=== PATIENT | male | born 1955 | race Caucasian/White ===

== ENCOUNTER → 2016-08-07 | Outpatient (CLI) | payer OTHER | END | disposition home or self-care (01) | LOC: CPPFTMAIN 11:36 | PROVIDERS: ATTEND Family Medicine | DX: J98.8 Other specified respiratory disorders (principal) | CPT/HCPCS: 94060; 94726; 94729 ==

== ENCOUNTER 2016-10-09 15:07 | Emergency (ER) | payer OTHER ==
[2016-10-09 15:23] VITALS: TEMP 97.5
--- NOTE | 2016-10-09 15:43 | ED ---
General Adult HPI - General Chief complaint: Chest Pain Stated complaint: chest pain Time Seen by Provider: 10/09/16 15:20 Source: patient, RN notes reviewed Mode of arrival: wheelchair - History of Present Illness Initial comments: This is a 61-year-old male who has a past medical history significant for smoking. Patient comes into the hospital today because his right-sided chest pain. Patient went to see his primary medical care doctor and he sent him to the hospital. Patient states he was out and about today when he turned and felt a sharp pain in the right chest which now hurts anytime he takes a deep breaths or cough. Patient also states she does feel short of breath. Patient denies any radiation of this pain patient denies any diaphoresis patient denies any nausea. Patient denies abdominal pain patient denies vomiting or diarrhea recently. Patient denies headache patient denies lightheadedness patient denies numbness weakness. Patient denies any dizziness or near syncopal episode. Patient states he has not experienced this before. Patient denies any heart problems. - Related Data Home Medications Medication Instructions Recorded Confirmed Advair Inhaler (Unknown Dose) 1 puff PO DAILY PRN 10/09/16 10/09/16 Buprenorphine HCl/Naloxone HCl 1 film SL DIRECTED 10/09/16 10/09/16 [Suboxone 2 mg-0.5 mg Sl Film] Ergocalciferol (Vitamin D2) 50,000 unit PO DAILY 10/09/16 10/09/16 [Vitamin D2] Fluticasone Nasal [place] [Flonase 1 spray EA NOSTRIL DAILY 10/09/16 10/09/16 Nasal [place]] Lisinopril-Hctz 20-25 mg 1 tab PO DAILY 10/09/16 10/09/16 [Zestoretic 20-25] Loratadine [Claritin] 10 mg PO DAILY 10/09/16 10/09/16 Vilazodone Hydrochloride [Viibryd] 40 mg PO DAILY 10/09/16 10/09/16 amLODIPine [Norvasc] 5 mg PO DAILY 10/09/16 10/09/16 predniSONE See Taper PO DAILY 10/09/16 10/09/16 Previous Rx's Medication Instructions Recorded Albuterol Inhaler [Ventolin Hfa 1 - 2 puff INHALATION Q6HR PRN #2 10/09/16 Inhaler] puff predniSONE 40 mg PO DAILY #8 tab 10/09/16 Allergies Allergy/AdvReac Type Severity Reaction Status Date / Time No Known Allergies Allergy Verified 12/02/13 19:56 Review of Systems ROS Statement: Those systems with pertinent positive or pertinent negative responses have been documented in the HPI. ROS Other: All systems not noted in ROS Statement are negative. Past Medical History Past Medical History: Hypertension Additional Past Medical History / Comment(s): uti kidney stones, History of Any Multi-Drug Resistant Organisms: None Reported Past Surgical History: Appendectomy, Hernia Repair Additional Past Surgical History / Comment(s): kidney stone surgery Past Anesthesia/Blood Transfusion Reactions: No Reported Reaction Past Psychological History: No Psychological Hx Reported Smoking Status: Current every day smoker Past Alcohol Use History: None Reported Past Drug Use History: Prescription Drug Abuse General Exam - General Exam Comments Initial Comments: GENERAL: Patient is well-developed and well-nourished. Patient is nontoxic and well- hydrated and is in mild distress. ENT: Neck is soft and supple. No significant lymphadenopathy is noted. Oropharynx is clear. Moist mucous membranes. Neck has full range of motion without eliciting any pain. EYES: The sclera were anicteric and conjunctiva were pink and moist. Extraocular movements were intact and pupils were equal round and reactive to light. Eyelids were unremarkable. PULMONARY: Unlabored respirations. Good breath sounds bilaterally. No audible rales rhonchi or wheezing was noted. CARDIOVASCULAR: There is a regular rate and rhythm without any murmurs gallops or rubs. ABDOMEN: Soft and nontender with normal bowel sounds. No palpable organomegaly was noted. There is no palpable pulsatile mass. SKIN: Skin is clear with no lesions or rashes and otherwise unremarkable. NEUROLOGIC: Patient is alert and oriented x3. Cranial nerves II through XII are grossly intact. Motor and sensory are also intact. Normal speech, volume and content. Symmetrical smile. MUSCULOSKELETAL: Normal extremities with adequate strength and full range of motion. No lower extremity swelling or edema. No calf tenderness. LYMPHATICS: No significant lymphadenopathy is noted PSYCHIATRIC: Normal psychiatric evaluation. Normal interpersonal interactions appears functionally intact in deals appropriately with others. No signs of depression. No signs of anxiety. Course Vital Signs 10/09/16 10/09/16 10/09/16 15:18 16:33 16:34 Temperature 97.5 F L Pulse Rate 68 64 69 Respiratory 18 18 Rate Blood Pressure 162/106 182/109 O2 Sat by Pulse 97 98 Oximetry 10/09/16 16:41 Temperature Pulse Rate 68 Respiratory Rate Blood Pressure O2 Sat by Pulse Oximetry Medical Decision Making - Medical Decision Making EKG shows normal sinus rhythm at 73 bpm AL interval is 136 QRS is 88 QT interval 370 QTC is 407. Patient's EKG shows no ST segment elevation or depression or T-wave abnormality is noted. Patient's chest x-ray shows no acute abnormality I went back into the room to reevaluate the patient he was still wheezing diffusely but he refused to stay any longer states she would follow-up with Dr. Driver. I spoke with Dr. Driver he agreed that he would follow-up with the patient tomorrow. Patient's blood pressure was also elevated 180/104 and he stated he had not yet taken his blood pressure medicine and he will do so when he gets home. - Lab Data Result diagrams: 10/09/16 15:28 10/09/16 15:28 Lab Results 10/09/16 10/09/16 10/09/16 Range/Units 15:28 15:28 15:28 WBC 7.0 (3.8-10.6) k/uL RBC 4.82 (4.30-5.90) m/uL Hgb 14.1 (13.0-17.5) gm/dL Hct 43.2 (39.0-53.0) % MCV 89.5 (80.0-100.0) fL MCH 29.1 (25.0-35.0) pg MCHC 32.6 (31.0-37.0) g/dL RDW 12.6 (11.5-15.5) % Plt Count 210 (150-450) k/uL Neutrophils % 73 % Lymphocytes % 15 % Monocytes % 8 % Eosinophils % 1 % Basophils % 0 % Neutrophils # 5.1 (1.3-7.7) k/uL Lymphocytes # 1.1 (1.0-4.8) k/uL Monocytes # 0.5 (0-1.0) k/uL Eosinophils # 0.1 (0-0.7) k/uL Basophils # 0.0 (0-0.2) k/uL PT (9.0-12.0) sec INR (<1.1) APTT (22.0-30.0) sec D-Dimer (<0.60) mg/L FEU Sodium 140 (137-145) mmol/L Potassium 4.8 (3.5-5.1) mmol/L Chloride 103 (98-107) mmol/L Carbon Dioxide 27 (22-30) mmol/L Anion Gap 10 mmol/L BUN 16 (9-20) mg/dL Creatinine 1.07 (0.66-1.25) mg/dL Est GFR (MDRD) Af Amer >60 (>60 ml/min/1.73 sqM) Est GFR (MDRD) Non-Af >60 (>60 ml/min/1.73 sqM) Glucose 93 (74-99) mg/dL Calcium 9.3 (8.4-10.2) mg/dL Magnesium 1.8 (1.6-2.3) mg/dL Total Bilirubin 0.7 (0.2-1.3) mg/dL AST 28 (17-59) U/L ALT 32 (21-72) U/L Alkaline Phosphatase 53 (38-126) U/L Total Creatine Kinase 57 (55-170) U/L CK-MB (CK-2) 1.7 (0.0-2.4) ng/mL CK-MB (CK-2) Rel Index 3.0 Troponin I <0.012 (0.000-0.034) ng/mL NT-Pro-B Natriuret Pep pg/mL Total Protein 7.3 (6.3-8.2) g/dL Albumin 4.2 (3.5-5.0) g/dL 10/09/16 10/09/16 Range/Units 15:28 15:28 WBC (3.8-10.6) k/uL RBC (4.30-5.90) m/uL Hgb (13.0-17.5) gm/dL Hct (39.0-53.0) % MCV (80.0-100.0) fL MCH (25.0-35.0) pg MCHC (31.0-37.0) g/dL RDW (11.5-15.5) % Plt Count (150-450) k/uL Neutrophils % % Lymphocytes % % Monocytes % % Eosinophils % % Basophils % % Neutrophils # (1.3-7.7) k/uL Lymphocytes # (1.0-4.8) k/uL Monocytes # (0-1.0) k/uL Eosinophils # (0-0.7) k/uL Basophils # (0-0.2) k/uL PT 9.8 (9.0-12.0) sec INR 1.0 (<1.1) APTT 24.7 (22.0-30.0) sec D-Dimer 0.36 (<0.60) mg/L FEU Sodium (137-145) mmol/L Potassium (3.5-5.1) mmol/L Chloride (98-107) mmol/L Carbon Dioxide (22-30) mmol/L Anion Gap mmol/L BUN (9-20) mg/dL Creatinine (0.66-1.25) mg/dL Est GFR (MDRD) Af Amer (>60 ml/min/1.73 sqM) Est GFR (MDRD) Non-Af (>60 ml/min/1.73 sqM) Glucose (74-99) mg/dL Calcium (8.4-10.2) mg/dL Magnesium (1.6-2.3) mg/dL Total Bilirubin (0.2-1.3) mg/dL AST (17-59) U/L ALT (21-72) U/L Alkaline Phosphatase (38-126) U/L Total Creatine Kinase (55-170) U/L CK-MB (CK-2) (0.0-2.4) ng/mL CK-MB (CK-2) Rel Index Troponin I (0.000-0.034) ng/mL NT-Pro-B Natriuret Pep 267 pg/mL Total Protein (6.3-8.2) g/dL Albumin (3.5-5.0) g/dL Disposition Clinical Impression: COPD (chronic obstructive pulmonary disease) Disposition: HOME SELF-CARE Instructions: COPD (Chronic Obstructive Pulmonary Disease) (ED) Prescriptions: Albuterol Inhaler [Ventolin Hfa Inhaler] 1 - 2 puff INHALATION Q6HR PRN #2 puff PRN Reason: Difficulty breathing predniSONE 40 mg PO DAILY #8 tab Referrals: Isaiah Poole MD [Primary Care Provider] - 1-2 days Time of Disposition: 17:24
--- NOTE | 2016-10-09 15:52 | XR ---
EXAMINATION TYPE: XR chest 2V DATE OF EXAM: 10/09/2016 3:48 PM HISTORY: Chest Pain. REFERENCE: Previous study dated 12/03/2013. FINDINGS: Lung volumes are mildly prominent. There is a chronic right-sided pleural reaction. The liu gs are clear. Heart size is normal. IMPRESSION: NO ACUTE INTRATHORACIC ABNORMALITY.
[2016-10-09 15:58] LABS: Basophils % (A) 0 %; CH 29.6; CHCM 33.2; Eosinophils # (A) 0.1 k/uL (0-0.7); Eosinophils % (A) 1 %; HCT 43.2 % (39.0-53.0); HGB 14.1 gm/dL (13.0-17.5); Luc # (Auto) 0.22; Luc % (Auto) 3; Lymphocytes # (A) 1.1 k/uL (1.0-4.8); Lymphocytes % (A) 15 %; MCH 29.1 pg (25.0-35.0); MCHC 32.6 g/dL (31.0-37.0); MCV 89.5 fL (80.0-100.0); Mean Platelet Volume 7.1; Monocytes # (A) 0.5 k/uL (0-1.0); Monocytes % (A) 8 %; Neutrophils # (A) 5.1 k/uL (1.3-7.7); Neutrophils % (A) 73 %; RBC 4.82 m/uL (4.30-5.90); RDW 12.6 % (11.5-15.5)
[2016-10-09] MEDS ORDERED: IPRATROPIUM-ALBUTEROL 3 ML NEB INHALATION STA (16:07)
[2016-10-09] MEDS ORDERED: methylPREDNISolone SOD SUCCI 125 MG/2 ML VIAL IV STA (16:07)
[2016-10-09 16:08] LABS: ALT 32 U/L (21-72); AST 28 U/L (17-59); Alkaline Phosphatase 53 U/L (38-126); Anion Gap 10 mmol/L; Blood Urea Nitrogen 16 mg/dL (9-20); Calcium 9.3 mg/dL (8.4-10.2); Carbon Dioxide 27 mmol/L (22-30); Chloride 103 mmol/L (98-107); Glucose 93 mg/dL (74-99); Magnesium 1.8 mg/dL (1.6-2.3); Non-African American GFR(MDRD) >60 (>60 ml/min/1.73 sqM); Potassium 4.8 mmol/L (3.5-5.1); Sodium 140 mmol/L (137-145); Total Bilirubin 0.7 mg/dL (0.2-1.3); Total Protein 7.3 g/dL (6.3-8.2)
[2016-10-09 16:23] LABS: Partial Thromboplastin Time 24.7 sec (22.0-30.0); Prothrombin Time 9.8 sec (9.0-12.0)
[2016-10-09 16:29] LABS: Creatine Kinase 57 U/L (55-170)
[2016-10-09 16:42] LABS: Creatine Kinase MB 1.7 ng/mL (0.0-2.4); Troponin I <0.012 ng/mL (0.000-0.034)
[2016-10-09 17:45] VITALS: BP 182/106; PULSE 76; RESP 16
== END 2016-10-09 17:42 | disposition home or self-care (01) ==
LOC: EC 15:07
DX: J44.9 Chronic obstructive pulmonary disease, unspecified (principal); R07.9 Chest pain, unspecified; R06.02 Shortness of breath; I10 Essential (primary) hypertension; F17.200 Nicotine dependence, unspecified, uncomplicated; Z79.52 Long term (current) use of systemic steroids; Z79.899 Other long term (current) drug therapy; Z79.51 Long term (current) use of inhaled steroids
CPT/HCPCS: 99285; 96374; 36415; 94640; 93005; 85379; 83880; 80053; 82550; 82553; 83735; 84484; 85025; 85610; 85730; 71020; J2930

== ENCOUNTER → 2017-01-03 | Outpatient (CLI) | payer OTHER ==
--- NOTE | 2017-01-04 10:25 | ECHOF ---
Referral Reason:R06.2 Shortness of Breath MEASUREMENTS -------- HEIGHT: 170.2 cm WEIGHT: 74.8 kg BP: 129/84 RVIDd: 3.3 cm (< 3.3) IVSd: 1.3 cm (0.6 - 1.1) LVIDd: 4.2 cm (3.9 - 5.3) LVPWd: 1.2 cm (0.6 - 1.1) IVSs: 1.7 cm LVIDs: 2.7 cm LVPWs: 1.6 cm LA Diam: 3.4 cm (2.7 - 3.8) LAESV Index (A-L): 17.63 ml/m Ao Diam: 4.0 cm (2.0 - 3.7) AV Cusp: 2.5 cm (1.5 - 2.6) MV EXCURSION: 15.944 mm (> 18.000) MV EF SLOPE: 35 mm/s (70 - 150) EPSS: 0.1 cm MV E [place]: 0.78 m/s MV DecT: 251 ms MV A [place]: 0.88 m/s MV E/A Ratio: 0.88 AV maxP.37 mmHg AV meanP.02 mmHg RAP: 5.00 mmHg RVSP: 14.63 mmHg FINDINGS -------- Sinus rhythm. This was a technically adequate study. The left ventricular size is normal. There is mild concentric left ventricular hypertrophy. Overall left ventricular systolic function is normal with, an EF between 55 - 60 %. The right ventricle is mildly enlarged. The left atrial size is normal. The right atrium is normal in size. Aortic valve is trileaflet and is mildly thickened. Mild mitral annular calcification present. The tricuspid valve appears structurally normal. The pulmonic valve is normal. The aortic root is dilated measuring 4.0cm. The inferior vena cava is mildly dilated. The pericardium is normal. CONCLUSIONS -------- 1. Sinus rhythm. 2. Mild mitral annular calcification present. 3. The tricuspid valve appears structurally normal. 4. The pulmonic valve is normal. 5. The aortic root is dilated measuring 4.0cm. 6. The inferior vena cava is mildly dilated. 7. The pericardium is normal. 8. This was a technically adequate study. 9. The left ventricular size is normal. 10. There is mild concentric left ventricular hypertrophy. 11. Overall left ventricular systolic function is normal with, an EF between 55 - 60 %. 12. The right ventricle is mildly enlarged. 13. The left atrial size is normal. 14. The right atrium is normal in size. 15. Aortic valve is trileaflet and is mildly thickened. MECHANICAL EQUIPMENT TEST ENGINEER: Lana Donahue RDCS
== END | disposition home or self-care (01) ==
LOC: RADECHMAIN 14:39
PROVIDERS: ATTEND Family Medicine
DX: I05.8 Other rheumatic mitral valve diseases (principal); I77.819 Aortic ectasia, unspecified site; I35.8 Other nonrheumatic aortic valve disorders
CPT/HCPCS: 93306

== ENCOUNTER → 2017-03-05 | Outpatient (CLI) | payer OTHER | END | disposition home or self-care (01) | LOC: CPPFTMAIN 13:09 | PROVIDERS: ATTEND Family Medicine | DX: J44.9 Chronic obstructive pulmonary disease, unspecified (principal) | CPT/HCPCS: 94060; 94726; 94729 ==

== ENCOUNTER → 2017-04-18 | Outpatient (CLI) | payer OTHER ==
--- NOTE | 2017-04-18 14:37 | US ---
EXAMINATION TYPE: US venous doppler duplex LE DATE OF EXAM: 04/18/2017 12:48 PM COMPARISON: None History: 62-year-old male with leg pain and swelling bilaterally. LOWER EXTREMITY VENOUS INSUFFICIENCY SIDE PERFORMED: Bilateral FINDINGS: CHIEF WHARFINGER NOTES: Difficult exam due to edema 1) Color flow is present and patency is documented in the following vessels. No DVT or SVT is noted . EIV Common Femoral Vein Deep Femoral Vein Femoral Vein Popliteal Vein Proximal Calf Veins Greater Saph Vein Upper Small Saph Vein 2) There is venous reflux noted at the following venous levels: Right: GSV, Right proximal, mid, and distal femoral vein, Right proximal and mid popliteal vein, Righ t small saphenous vein, and right proximal calf veins. Left EIV, left Common Femoral Vein, left Deep Femoral Vein, left Femoral Vein, left Popliteal Vein, l eft Proximal Calf Veins, left Greater Saph Vein, and left Upper Small Saph Vein 3) Incompetent perforators: Not seen. IMPRESSION: 1. No evidence for DVT within the bilateral lower extremities imaged from the groin to the upper calv es. 2. Bilateral lower extremity venous reflux as outlined above.
--- NOTE | 2017-05-01 14:25 | P.ARTDOP ---
Arterial Doppler LOWER EXTREMITY ARTERIAL DOPPLER: DATE OF SERVICE: 04/18/2017 Reason for study: Bilateral leg pain. Doppler waveforms: Multiphasic bilaterally throughout. Pulse volume recording: Normal configuration. Pressure gradients: None. Ankle-brachial indices: Greater than 1 bilaterally. Toe pressures: [] on the right, [] on the left Impression: Normal study.
== END | disposition home or self-care (01) ==
LOC: RADUSWWP 11:54
PROVIDERS: ATTEND Family Medicine
DX: I87.2 Venous insufficiency (chronic) (peripheral) (principal)
CPT/HCPCS: 93923; 93970

== ENCOUNTER 2017-10-02 17:48 | Emergency (ER) | payer OTHER ==
[2017-10-02 17:57] VITALS: BP 146/63; PULSE 85; RESP 20; TEMP 97.7
--- NOTE | 2017-10-02 18:10 | ED ---
Fall HPI - General Chief Complaint: Fall Stated Complaint: Shoulder injury/knee pain Time Seen by Provider: 10/02/17 18:01 Source: patient, RN notes reviewed Mode of arrival: ambulatory - History of Present Illness Initial Comments: This is a 62-year-old male who presents to the emergency department with chief complaint of right shoulder injury. Patient states that prior to arrival he was at a friend's house with his dog on a leash. He states that his dog became spooked and ran out towards the road. He states that he did not want to let go of the leash because they were on a busy road. He ended up falling down and landing on his right side. Patient complains of right shoulder pain. He states he has limited range of motion of the shoulder. He immediately presented to the emergency department. Denies any other injuries or trauma. Denies fever, chills, chest pain, shortness of breath, abdominal pain, nausea or vomiting, constipation or diarrhea, dysuria or hematuria, numbness or tingling, headache or vision changes. - Related Data Home Medications Medication Instructions Recorded Confirmed Advair Inhaler (Unknown Dose) 1 puff PO DAILY PRN 10/09/16 10/09/16 Buprenorphine HCl/Naloxone HCl 1 film SL DIRECTED 10/09/16 10/09/16 [Suboxone 2 mg-0.5 mg Sl Film] Ergocalciferol (Vitamin D2) 50,000 unit PO DAILY 10/09/16 10/09/16 [Vitamin D2] Fluticasone Nasal [place] [Flonase 1 spray EA NOSTRIL DAILY 10/09/16 10/09/16 Nasal [place]] Lisinopril-Hctz 20-25 mg 1 tab PO DAILY 10/09/16 10/09/16 [Zestoretic 20-25] Loratadine [Claritin] 10 mg PO DAILY 10/09/16 10/09/16 Vilazodone HCl [Viibryd] 40 mg PO DAILY 10/09/16 10/09/16 amLODIPine [Norvasc] 5 mg PO DAILY 10/09/16 10/09/16 predniSONE See Taper PO DAILY 10/09/16 10/09/16 Previous Rx's Medication Instructions Recorded Albuterol Inhaler [Ventolin Hfa 1 - 2 puff INHALATION Q6HR PRN #2 10/09/16 Inhaler] puff predniSONE 40 mg PO DAILY #8 tab 10/09/16 Allergies Allergy/AdvReac Type Severity Reaction Status Date / Time No Known Allergies Allergy Verified 10/02/17 17:57 Review of Systems ROS Statement: Those systems with pertinent positive or pertinent negative responses have been documented in the HPI. ROS Other: All systems not noted in ROS Statement are negative. Past Medical History Past Medical History: Hypertension Additional Past Medical History / Comment(s): uti kidney stones, History of Any Multi-Drug Resistant Organisms: None Reported Past Surgical History: Appendectomy, Hernia Repair Additional Past Surgical History / Comment(s): kidney stone surgery Past Anesthesia/Blood Transfusion Reactions: No Reported Reaction Past Psychological History: Depression Smoking Status: Current every day smoker Past Alcohol Use History: Rare Past Drug Use History: Marijuana General Exam - General Exam Comments Initial Comments: General: Awake and alert, well-developed; in no apparent distress. HEENT: Head atraumatic, normocephalic. Pupils are equal, round and reactive to light. Extraocular movements intact. Oropharynx moist without erythema or exudate. Neck: Supple. Normal ROM. Cardiovascular: Regular rate and rhythm. No murmurs, rubs or gallops. Chest symmetrical. Respiratory: Lungs clear to auscultation bilaterally. No wheezes, rales or rhonchi. Normal respiratory effort with no use of accessory muscles. Musculoskeletal: Limited range of motion of the right shoulder due to pain. There is soft tissue swelling and ecchymosis overlying clavicle and AC joint. Sensation is intact. Radial pulses are 2+ equal and palpable bilaterally. Skin: [place], warm and dry without rashes or lesions. Neurological: Alert and oriented x3. CN II-XII grossly intact. Speech is fluent and answers are appropriate. No focal neuro deficits. Psychiatric: Normal mood and affect. No overt signs of depression or anxiety noted. Limitations: no limitations Course Vital Signs 10/02/17 17:54 Temperature 97.7 F Pulse Rate 85 Respiratory 20 Rate Blood Pressure 146/63 O2 Sat by Pulse 95 Oximetry Medical Decision Making - Medical Decision Making This is a 62-year-old male who presented to the emergency department for evaluation of right shoulder injury. X-ray revealed fracture of the distal clavicle. Patient will be provided a sling and pain meds. He is to follow-up with orthopedics within 1-2 days. Patient's vital signs are stable and he is in no acute distress. Patient is in agreement with plan and voices understanding. All questions were answered. - Radiology Data Radiology results: report reviewed X-ray right shoulder findings: There is a comminuted fracture the lateral end of the clavicle. There is displacement of the fragments up to 1.5 cm. There is no dislocation. It is not clear if this is an acute fracture. The glenohumeral joint is anatomic. Impression: There is a new comminuted clavicle fracture compared to old exam. It is not clear if this is an acute fracture. Disposition Clinical Impression: Right clavicle fracture Disposition: HOME SELF-CARE Condition: Good Instructions: Clavicle Fracture (ED) Additional Instructions: Please follow-up with Dr. Sheffield, orthopedics within 1-2 days. Please wear sling. Please take medications as prescribed. Please follow up with primary care provider within 1-2 days. Return to emergency department if symptoms should worsen or any concerns arise. Referrals: Isaiah Poole MD [Primary Care Provider] - 1-2 days Pj Sheffield MD [STAFF PHYSICIAN] - 1-2 days Time of Disposition: 18:53
--- NOTE | 2017-10-02 18:43 | XR ---
EXAMINATION TYPE: XR shoulder complete RT DATE OF EXAM: 10/02/2017 COMPARISON: 06/25/2014 HISTORY: Shoulder pain TECHNIQUE: 3 views FINDINGS: There is a comminuted fracture of the lateral end of the clavicle. There is displacement of the fragments up to 1.5 cm. There is no dislocation. It is not clear if this is an acute fracture. T he glenohumeral joint is anatomic. IMPRESSION: There is a new comminuted clavicle fracture compared to old exam. It is not clear if this is an acute fracture.
== END 2017-10-02 18:58 | disposition home or self-care (01) ==
LOC: EC 17:48
DX: S42.031A Displaced fracture of lateral end of right clavicle, initial encounter for closed fracture (principal); I10 Essential (primary) hypertension; F32.9 Major depressive disorder, single episode, unspecified; F17.200 Nicotine dependence, unspecified, uncomplicated; Z79.51 Long term (current) use of inhaled steroids; Z79.52 Long term (current) use of systemic steroids; Z79.899 Other long term (current) drug therapy; W01.0XXA Fall on same level from slipping, tripping and stumbling without subsequent striking against object, initial encounter; Y92.009 Unspecified place in unspecified non-institutional (private) residence as the place of occurrence of the external cause
CPT/HCPCS: 99283

== ENCOUNTER → 2017-10-09 | Outpatient (CLI) | payer OTHER ==
--- NOTE | 2017-10-09 10:12 | CT ---
EXAMINATION TYPE: CT shoulder RT wo con DATE OF EXAM: 10/09/2017 COMPARISON: Right shoulder x-ray from one week ago. HISTORY: Pain in right shoulder and displaced fracture distal right clavicle per order. CT DLP: 397 mGycm Automated exposure control for dose reduction was used. FINDINGS: Correlating with recent x-ray there is comminuted displaced fracture deformity of the distal right cl avicle with approximately 3 ossific fracture fragments identified. Largest measures 3.3 x 1.4 cm kev nal image 75 displaced slightly posteriorly and inferiorly. Most distal fracture fragment measures 1. 8 x 0.8 cm coronal image 67 and retains normal articulation with the acromion. The distal clavicular shaft is slightly superiorly displaced by approximately 7 mm along inferior margin. On sagittal image s the fracture fragments are still suspected superior to the supraspinatus muscle and tendon Glenohumeral joint is preserved with mild to moderate superior slightly anterior joint space loss cor onal image 74. Rotator cuff muscle bulk is fairly well-maintained. Visualized scapula is intact. Visu alized ribs are intact. Visualized portion of right lung is unremarkable. Sternoclavicular joint is m aintained. IMPRESSION: ACUTE COMMINUTED DISPLACED FRACTURE DISTAL CLAVICLE DETAILED ABOVE.
== END | disposition home or self-care (01) ==
LOC: RADCTMAIN 07:48
PROVIDERS: ATTEND Orthopaedic Surgery
DX: S42.031A Displaced fracture of lateral end of right clavicle, initial encounter for closed fracture (principal)

== ENCOUNTER → 2018-08-26 | Outpatient (CLI) | payer OTHER ==
[2018-08-26 11:06] LABS: Basophils % (A) 1 %; Eosinophils # (A) 0.1 k/uL (0-0.7); Eosinophils % (A) 2 %; HCT 42.2 % (39.0-53.0); HGB 13.5 gm/dL (13.0-17.5); Lymphocytes # (A) 0.9 k/uL (1.0-4.8); Lymphocytes % (A) 25 %; MCH 29.2 pg (25.0-35.0); MCV 91.5 fL (80.0-100.0); Mean Platelet Volume 7.8; Monocytes # (A) 0.5 k/uL (0-1.0); Monocytes % (A) 12 %; Neutrophils # (A) 2.2 k/uL (1.3-7.7); Neutrophils % (A) 57 %; Platelet Count 179 k/uL (150-450); RBC 4.61 m/uL (4.30-5.90); RDW 13.1 % (11.5-15.5); WBC 3.9 k/uL (3.8-10.6)
[2018-08-26 11:21] LABS: Albumin 4.1 g/dL (3.5-5.0); Calcium 9.4 mg/dL (8.4-10.2); Total Bilirubin 0.7 mg/dL (0.2-1.3); Total Protein 6.7 g/dL (6.3-8.2)
[2018-08-26 11:23] LABS: Potassium 4.7 mmol/L (3.5-5.1)
--- NOTE | 2018-08-26 16:35 | US ---
EXAMINATION TYPE: US abdomen complete DATE OF EXAM: 08/26/2018 COMPARISON: CT chest abdomen pelvis 12/02/2013 CLINICAL HISTORY: B19.20 Hep C. Patient states having RK and LK stones with surgical removal. EXAM MEASUREMENTS: Liver Length: 15.2 cm Gallbladder Wall: 0.1 cm CBD: 0.4 cm CHD: 0.4 cm Spleen: 10.2 cm Right Kidney: 11.9 x 6.1 x 4.7 cm Left Kidney: 10.5 x 4.4 x 4.7 cm Pancreas: Obscured by bowel gas Liver: Slightly course in appearance Gallbladder: fold visualized Evidence for sonographic Jasso's sign: wnl CBD: wnl CHD: wnl Spleen: wnl Right Kidney: wnl Left Kidney: Cortical tissue not well visualized. Moderate/severe hydronephrosis Upper IVC: wnl Abd Aorta: Proximal obscured by overlying bowel gas IMPRESSION: 1. There appears to be marked cystic replacement through the left kidney. This would be compatible wi th the hydronephrosis and renal failure the previous CT examination.
[2018-08-26 18:35] LABS: Hepatitis B Surface AB- Quant 21.1 mIU/mL
== END | disposition home or self-care (01) ==
LOC: RADUSWWP 09:53
PROVIDERS: ATTEND Internal Medicine Infectious Disease
DX: N28.1 Cyst of kidney, acquired (principal); B19.20 Unspecified viral hepatitis C without hepatic coma
CPT/HCPCS: 36415; 76700; 80053; 85025; 86706; 87340; 87390

== ENCOUNTER → 2018-12-24 | Outpatient (CLI) | payer OTHER ==
[2018-12-24 11:00] LABS: Basophils % (A) 1 %; Eosinophils # (A) 0.1 k/uL (0-0.7); Eosinophils % (A) 1 %; HGB 13.3 gm/dL (13.0-17.5); Lymphocytes % (A) 28 %; MCH 28.5 pg (25.0-35.0); MCHC 32.3 g/dL (31.0-37.0); MCV 88.3 fL (80.0-100.0); Mean Platelet Volume 7.5; Monocytes # (A) 0.4 k/uL (0-1.0); Monocytes % (A) 12 %; Neutrophils % (A) 55 %; Platelet Count 187 k/uL (150-450); RBC 4.64 m/uL (4.30-5.90); RDW 14.2 % (11.5-15.5); WBC 3.6 k/uL (3.8-10.6)
[2018-12-24 16:12] LABS: Albumin 4.3 g/dL (3.80-4.90); Albumin/Globulin Ratio 2.15 (1.60-3.17); Anion Gap 5.4 mmol/L (4.00-12.00); Calcium 9.1 mg/dL (8.7-10.3); Carbon Dioxide 26.6 mmol/L (21.6-31.8); Potassium 4.7 mmol/L (3.5-5.5); Total Bilirubin 0.6 mg/dL (0.2-1.2); Total Protein 6.3 g/dL (6.2-8.2)
== END | disposition home or self-care (01) ==
LOC: LABWHC1 10:00
PROVIDERS: ATTEND Internal Medicine Infectious Disease
DX: B19.20 Unspecified viral hepatitis C without hepatic coma (principal)
CPT/HCPCS: 36415; 80053; 85025; 87521

== ENCOUNTER → 2019-06-17 | Outpatient (CLI) | payer MEDICARE, OTHER ==
--- NOTE | 2019-06-17 11:09 | XR ---
EXAMINATION TYPE: XR chest 2V DATE OF EXAM: 06/17/2019 COMPARISON: Chest x-ray October 09, 2016 HISTORY: Cough for 2 weeks. TECHNIQUE: Frontal and lateral views of the chest are obtained. FINDINGS: There is background chronic emphysematous change with chronic blunting of right lateral co stophrenic angle. New tiny bilateral pleural effusions on lateral view. No suspicious focal airspace opacity or pneumothorax.. The cardiac silhouette size remains within normal limits. Old healed fract ure deformity distal right clavicle is new from 2017. Old right lateral mid rib fractures are present . IMPRESSION: Chronic changes without acute pulmonary infiltrate. New tiny bilateral pleural effusions noted.
== END | disposition home or self-care (01) ==
LOC: RADXRMAIN 10:49
PROVIDERS: ATTEND Family Medicine
DX: J90 Pleural effusion, not elsewhere classified (principal); J18.9 Pneumonia, unspecified organism
CPT/HCPCS: 71046

== ENCOUNTER → 2022-10-24 | Outpatient (CLI) | payer MEDICARE, OTHER ==
--- NOTE | 2022-10-24 12:38 | CTL ---
EXAMINATION TYPE: CT Low Dose Lung DATE OF EXAM ORDERED: 10/24/2022 HISTORY: . Lung cancer screening CT DLP: 98.[address] CTDI: 3.0 mGy Automated exposure control for dose reduction was used. SCREENING VISIT: COMPARISON: 07/12/2016 TECHNIQUE: Low dose computed tomography scan was performed through the chest at 1 mm thick sections a nd reconstructed images in multiple planes at 1 mm and [address] DIAGNOSTIC QUALITY: Satisfactory FINDINGS: There is a 5 mm calcified nodule right lower lobe stable in appearance. There is a 4 mm left lower lobe nodule axial image 127 near the fissure stable from prior exam and th erefore benign.. Mild emphysematous changes are seen. Subsegmental changes involving the anterior segment right upper lobe is most typical of atelectasis. Less likely scarring. No pneumothorax or pleural effusion. No fo juhi pneumonia. Additional areas of subsegmental consolidation right lower lobe are suggestive of scar or atelectasis There is atherosclerotic change of the aorta with no evidence of aneurysm. Coronary artery calcificat ion seen in the heart size is at the upper limits of normal. No pathologic adenopathy by noncontrast technique. Hypertrophic and degenerative changes of the spine. There is stable thickening to the left adrenal gland unchanged from prior exam in the bases or adenom a. IMPRESSION: 1. Stable 5 mm left pulmonary nodules which have a benign appearance. 2. Chronic basilar scarring and atelectasis right lung similar to the prior exam. 3. Mild COPD CT LUNG RAD AND CT CHEST RECOMMENDATION: Lung-Rad 2 Benign Appearance or Behavior: Continue annual sc reening with LDCT in 12 months.
== END | disposition home or self-care (01) ==
LOC: RADCTMAIN 10:57
PROVIDERS: ATTEND Family Medicine
DX: Z12.2 Encounter for screening for malignant neoplasm of respiratory organs (principal); J44.9 Chronic obstructive pulmonary disease, unspecified; J98.11 Atelectasis; J98.4 Other disorders of lung; R91.8 Other nonspecific abnormal finding of lung field; Z87.891 Personal history of nicotine dependence
CPT/HCPCS: 71271